=== PATIENT | female | born 1980 ===

== ENCOUNTER → 2019-04-27 | Outpatient (CLI) | payer OTHER ==
[~2019-04-27] MED LIST: ALPR-1 PO; HYDR200T42 PO; OLOP2.5D5 OS; PANT20TA27 PO; PRE1 PO
[2019-04-27 11:44] LABS: PLATELET COUNT, AUTOMATED 291 K/uL (150-450)
[2019-04-27 12:04] LABS: LDL CHOLESTEROL 81 mg/dl
== END ==
LOC: LAB 11:29
PROVIDERS: ATTEND Emergency Medicine
DX: M35.1 Other overlap syndromes (principal)
CPT/HCPCS: 36415; 82040; 82247; 82310; 82374; 82435; 82465; 82565; 82607; 82652; 82947; 83718; 84075; 84132; 84155; 84295; 84443; 84450; 84460; 84478; 84520; 85025